=== PATIENT | female | born 1945 | race Caucasian/White ===

== ENCOUNTER 2016-11-22 06:17 | Day surgery (SDC) | payer MEDICARE, BC ==
[~2016-11-22 06:17] MED LIST: Dextrose 5%-0.45% NaCl 1,000 ML IV SCH; Midazolam 1 MG/ML 2 ML SDV ONE; fentaNYL 100 MCG/2 ML SDV ONE
[2016-11-22] MEDS ORDERED: Dextrose 5%-0.45% NaCl 1,000 ML IV SCH (07:15)
[2016-11-22] MEDS ORDERED: fentaNYL 100 MCG/2 ML SDV IV ONE ×5 (07:38→15:46)
[2016-11-22] MEDS ORDERED: Midazolam 1 MG/ML 2 ML SDV IV ONE ×9 (07:39→15:46)
[2016-11-22] MEDS ORDERED: Sodium Chloride 0.9% 10 ML Syringe FLUSH PRN (09:59)
[2016-11-22 10:37] VITALS: BP 124/59
--- NOTE | 2016-11-22 11:12 | OR ---
DATE: 11/22/2016 PROCEDURE: Total colonoscopy, NBI, and multiple pinch biopsies. INSTRUMENT USED: PCF-H180AL Olympus video colonoscope. PREMEDICATIONS: Fentanyl 150 mcg intravenous, Versed 5 mg intravenous. Nasal O2 cannula. The procedure was done under pulse oximetry, BP recording, and monitoring analyst. INDICATION: The patient with longstanding ulcerative colitis, on therapy. Surveillance colonoscopic examination is done for detection of any polypoid lesions and removal, mucosal healing also to be assessed with reference to the present therapy, polypectomies and endoscopic hemostasis therapy as needed. DESCRIPTION OF PROCEDURE: Initial rectal exam showed some perianal erythema and diffuse tenderness. Limited rigid anoscopic examination was unremarkable. The colonoscope was passed with ease up to and beyond the ileocecal area to visualize normal-appearing terminal ileum. No bleeding was noted from any of the visualized areas at the commencement of the examination. No stricture. No vascular ectasia. No large isolated ulcerations seen. Few scattered diverticula were noted in the distal left colon. Multiple benign-appearing polyps-pseudopolyps were noted, 3 mm sized proximal ascending colon, 3 mm sized proximal transverse colon, 3 mm, 5 mm, 1 cm and 2 cm sized, total number 4 in the descending colon, NBI views and photographs were taken, numerous pinch biopsies were obtained and sent for histopathology. Probing the proximal sides of folds and flexures, using adequate distention and clearing of the stool material, withdrawal of the scope was made. No bleeding was noted from any of the visualized areas at the completion of examination. IMPRESSION: 1. Ulcerative colitis. 2. Diverticulosis. The patient tolerated the procedure well. [facility] /[id number]
--- NOTE | 2016-11-22 13:30 | LETTER ---
11/22/2016 Donnie Zepeda MD [facility] [address] [place] [id number] RE: SASKIA ALFORD : [address] Zepeda: Ms. Saskia Alford had colonoscopic examination done this morning and she tolerated the procedure well. I herewith send a copy of the endoscopy note and photographs for your review. Thank you. Sincerely, [facility] /[id number]
== END 2016-11-22 09:35 | disposition home or self-care (01) ==
LOC: DL.ENDO 06:17
PROVIDERS: ATTEND Internal Medicine Gastroenterology
DX: K51.40 Inflammatory polyps of colon without complications (principal); K51.90 Ulcerative colitis, unspecified, without complications; K57.30 Diverticulosis of large intestine without perforation or abscess without bleeding
CPT/HCPCS: 45380; J2250; J3010; J7042; 88305

== ENCOUNTER → 2017-09-03 | Day surgery (SDC) | payer MEDICARE, BC ==
[~2017-09-03] MED LIST changes: +Midazolam 1 MG/ML 2 ML SDV IV ONE; +Sodium Chloride 0.9% 10 ML Syringe FLUSH PRN; +fentaNYL 100 MCG/2 ML SDV IV ONE
--- NOTE | 2017-09-03 09:17 | OR ---
DATE: 09/03/2017 PROCEDURES: Total colonoscopy, narrow-band imaging, cold snare polypectomy, and multiple pinch biopsies. INSTRUMENT USED: PCF-H180 AL Olympus video colonoscope. PREMEDICATIONS: Fentanyl 150 mcg intravenous, Versed 6 mg intravenous. Nasal O2 cannula. The procedure was done under pulse oximetry, BP recording, and classroom monitor. INDICATION: The patient with a longstanding ulcerative colitis, on therapy. Surveillance colonoscopic examination is done for detection of any dysplasia, mucosal healing to be assessed, endoscopic hemostasis therapy if needed. DESCRIPTION OF PROCEDURE: Initial rectal exam showed perianal erythema and some diffuse tenderness. Limited rigid anoscopic examination was unremarkable. The colonoscope was passed with ease up to the ileocecal area. Photographs were taken of the normal-appearing cecum identified by double-bulged ileocecal folds. No bleeding was noted from any of the visualized areas at the commencement of examination. Diverticular opening was noted in the distal descending colon and multiple 3-mm sized polyps, couple of them noted. Cold snare polypectomy was done of the distal polyp, and tissue was collected and sent for histopathology. NBI views were obtained of the polyp. Biopsies were taken from the base and sent for histopathology. Another larger suggestive pseudopolyp was noted in the distal descending colon. Photographs were taken. Numerous pinch biopsies were obtained and sent for histopathology. Four-quadrant biopsies were taken at 10 cm distance apart from cecum to rectum, and the tissues obtained were pooled into bags. 1. Cecum and ascending colon. 2. Transverse colon. 3. Descending colon. 4. Rectosigmoid. Sent for any histopathologic evidence of dysplasia. No bleeding was noted from any of the visualized areas at the completion of examination. IMPRESSION: 1. Diverticulosis. 2. Ulcerative colitis. The patient tolerated the procedure well. [facility] /[id number]
--- NOTE | 2017-09-03 09:59 | LETTER ---
09/03/2017 Donnie Zepeda MD [facility] [address] [id number] RE: SASKIA ALFORD : [address] Zepeda: Ms. Saskia Alford had colonoscopic examination done this morning and she tolerated the procedure well. I herewith send a copy of the endoscopy note and photographs for your review. Thank you. Sincerely, [facility] /[id number]
== END | disposition home or self-care (01) ==
LOC: DL.ENDO 05:40
PROVIDERS: ATTEND Internal Medicine Gastroenterology
DX: K51.40 Inflammatory polyps of colon without complications (principal); K51.90 Ulcerative colitis, unspecified, without complications; K57.30 Diverticulosis of large intestine without perforation or abscess without bleeding
CPT/HCPCS: 45380; 45385; 88305; J2250; J3010; J7042